=== PATIENT | male | born 1990 | race Caucasian/White ===

== ENCOUNTER 2017-03-11 23:27 | Emergency (ER) | payer OTHER | END 2017-03-12 01:25 | disposition home or self-care (01) | LOC: D.ER 23:27 | DX: S80.12XA Contusion of left lower leg, initial encounter (principal); X58.XXXA Exposure to other specified factors, initial encounter; Y93.89 Activity, other specified; Y92.89 Other specified places as the place of occurrence of the external cause; I10 Essential (primary) hypertension ==

== ENCOUNTER → 2019-03-22 14:01 | Outpatient (CLI) | payer MEDICAID | END | disposition home or self-care (01) | LOC: D.MRI 14:01 | PROVIDERS: ATTEND Orthopaedic Surgery | DX: S83.281A Other tear of lateral meniscus, current injury, right knee, initial encounter (principal); S83.271A Complex tear of lateral meniscus, current injury, right knee, initial encounter; X58.XXXA Exposure to other specified factors, initial encounter ==

== ENCOUNTER 2019-04-16 10:30 | Day surgery (SDC) | payer MEDICAID ==
[2019-04-13 10:13] LABS: HEMATOCRIT 41.1 % (42.0-54.0); HEMOGLOBIN 15.1 g/dL (13.5-17.5); MCH 30.8 pg (26.0-34.0); MCHC 36.7 g/dL (31.0-37.0); MCV 83.9 fL (80.0-100.0); RBC 4.9 10x6/uL (4.20-6.10); RDW 12.2 % (11.5-14.5); WBC 6.5 10x3/uL (4.8-10.8)
[2019-04-13 10:21] LABS: CALC OSMOLALITY 279 mosm/kg (275-300); CALCIUM 9.8 mg/dL (8.5-10.1); CARBON DIOXIDE 28.9 mmol/L (21.0-32.0); CHLORIDE - SERUM 102 mmol/L (98-107); CREATININE - SERUM 0.8 mg/dL (0.6-1.3); GLUCOSE 89 mg/dL (74-106); POTASSIUM - SERUM 4.1 mmol/L (3.5-5.1); SODIUM 139 mmol/L (136-145); UREA NITROGEN 21 mg/dL (7-18); eGFR NON AFRICAN AMERICAN > 90 mL/min (90-120)
[~2019-04-16] VITALS: Ht 172.7 cm; Wt 120.2 kg
[~2019-04-16 10:30] MED LIST: ADIPEX-P37.5 MG PO; ATARAX 25 MG TA25 MG PO; CELEXA20 MG PO; DUEXIS 800-26.1 EACH PO; LISINOPRIL-HCT1 EAC7 PO
[2019-04-16] MEDS ORDERED: FEXOFENADINE HC60 MG PO (12:11)
[2019-04-16 12:25] VITALS: BP 106/64; Ht 172.7 cm; Wt 120.2 kg
[2019-04-16] MEDS ORDERED: HYDROCODON-ACE1 EA10 PO (14:49)
--- NOTE | 2019-04-16 18:36 | NUR ---
175 IV REMOVED 1814 D/C HOME
--- NOTE | 2019-04-19 11:34 | OP ---
PATIENT NAME: JENNY MARISCAL MEDICAL RECORD: [id number] :89 LOCATION:[facility] ADMISSION DATE: SURGEON: ALEN VU MD DATE OF OPERATION: 04/16/2019 PREOPERATIVE DIAGNOSIS: Patellofemoral syndrome of the right knee. POSTOPERATIVE DIAGNOSIS: Patellofemoral syndrome of the right knee. PROCEDURE: Arthroscopic lateral release of the right lateral retinaculum. SURGEON: Alen Vu MD ANESTHESIA: General. INTRAOPERATIVE COMPLICATIONS: None. 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 OPERATIVE SUMMARY IN DETAIL: After obtaining the appropriate preoperative orthopedic surgery consent as well as anesthetic consultation, evaluation, and clearance, the patient was brought to the operating room and placed on the operating table in supine position. After general laryngeal mask airway was administered, tourniquet was placed at the proximal aspect of the right lower extremity. Right lower extremity was then prepped and draped in routine sterile fashion. The leg was elevated and exsanguinated, tourniquet was inflated to 350 mmHg. Routine inferolateral portal was established followed by superomedial portal and inferomedial portal. Diagnostic arthroscopy did show the patient to have the above findings. Medial and lateral compartment relatively was pristine without meniscal tearing. The arthroscopy view was set up from the medial side for direct visualization of the lateral aspect of the knee. Arthrowand hook tip ablation was then utilized to release the lateral retinaculum from the inferolateral aspect of the vastus lateralis to the inferolateral portal. Having completed this, arthroscopy portals were closed in routine interrupted fashion using 4-0 Prolene. Sterile dressings were applied. The patient was awakened, taken to the recovery room in stable condition. All final needle and sponge counts were correct. TRANSINT:[id number] Voice Confirmation ID: [id number] DOCUMENT ID: [id number] HORACE PASTOR, ALEN CRAWFORD at 1134 CC: [id number] DICTATION DATE: 04/18/19 1045 CONSTRUCTION SUPERVISOR: 04/18/19 1234 [facility] 04/16/19 [place] [id number]
== END 2019-04-16 18:15 | disposition home or self-care (01) ==
LOC: D.PAN 10:30 → D.OPS 16:00 → D.PAN 16:00
PROVIDERS: Anesthesiology; ATTEND Orthopaedic Surgery
DX: M22.2X1 Patellofemoral disorders, right knee (principal)

== ENCOUNTER 2020-05-29 08:40 | Day surgery (SDC) | payer OTHER ==
[~2020-05-29] VITALS: Ht 172.7 cm; Wt 122.5 kg
[~2020-05-29 08:40] MED LIST changes: +FEXOFENADINE HC60 MG PO; +HYDROCODON-ACE1 EA10 PO; +PROPRANOLOL HCL20 MG PO
[2020-05-29 08:57] LABS: HEMATOCRIT 44.4 % (42.0-54.0); HEMOGLOBIN 15.2 g/dL (13.5-17.5); MCH 30.5 pg (26.0-34.0); MCHC 34.2 g/dL (31.0-37.0); MEAN PLATELET VOLUME 10.1 fL (7.4-10.4); RBC 4.99 10x6/uL (4.20-6.10); RDW 12.5 % (11.5-14.5)
[2020-05-29 09:08] LABS: CALC OSMOLALITY 270 mosm/kg (275-300); CALCIUM 9.9 mg/dL (8.5-10.1); CARBON DIOXIDE 31.3 mmol/L (21.0-32.0); CHLORIDE - SERUM 101 mmol/L (98-107); CREATININE - SERUM 0.8 mg/dL (0.6-1.3); GLUCOSE 87 mg/dL (74-106); SODIUM 135 mmol/L (136-145); UREA NITROGEN 19 mg/dL (7-18); eGFR NON AFRICAN AMERICAN > 90 mL/min (90-120)
[2020-05-29 09:39] VITALS: BP 112/62; Ht 172.7 cm; Wt 122.5 kg
[2020-05-29] MEDS ORDERED: HYDROCODON-ACE1 EA10 PO (11:44)
--- NOTE | 2020-05-29 14:20 | NUR ---
1348-VSS, DRESSING CDI. POSITIVE REGULAR STRONG PEDAL PULSE. CAP REFILL WNL. PAIN 3/10 TO SURGICAL SITE. NO DISTRESS. DENIES N/V. REMOVED IV WITH CATH INTACT, DISPOSED INTO SHARPS. COVERED WITH GUAZE, SECURED WITH MEDIPORE TAPE. REVIEWED POST OP INSTRUCTIONS AND FOLLOW UP APPOINTMENT WITH PT AND SPOUSE AT BEDSIDE. VERBALIZED UNDERSTANDING.
--- NOTE | 2020-05-29 14:23 | NUR ---
1355-PT DRESSED. ESCORTED OUT VIA W/C WITH SPOUSE AWAITING TO DRIVE HOME.
--- NOTE | 2020-05-31 09:12 | OP ---
PATIENT NAME: JENNY MARISCAL MEDICAL RECORD: [id number] :89 LOCATION:[facility] ADMISSION DATE: SURGEON: ALEN VU MD DATE OF OPERATION: 05/29/2020 PREOPERATIVE DIAGNOSIS: Patellofemoral syndrome, left lower extremity. POSTOPERATIVE DIAGNOSIS: Patellofemoral syndrome, left lower extremity. PROCEDURE: Arthroscopic lateral release, left lower extremity. SURGEON: Alen Vu MD ANESTHESIA: General. INTRAOPERATIVE COMPLICATIONS: None. SUMMARY OF PATHOLOGIC FINDINGS: The patient did indeed have patellofemoral joint disease consistent with his preoperative diagnosis MRI and physical examination. He had previously had a right lateral release with substantial relief of symptoms. OPERATIVE SUMMARY IN DETAIL: After obtaining the appropriate preoperative orthopedic surgery consent as well as anesthetic consultation, evaluation and clearance, the patient was brought to the operating room and placed on the operating table in supine position. After adequate general laryngeal mask airway was administered, tourniquet was placed about the proximal aspect of the left lower extremity. Left lower extremity was then prepped and draped in routine sterile fashion. Leg was elevated, exsanguinated, and tourniquet was inflated to 350 mmHg. At this point, the appropriate timeout was taken, given the patient's unique identifiers. This was agreed upon by all in the operative suite. Inferolateral portal was established followed by superomedial and inferomedial portal. Diagnostic arthroscopy showed the patient to have absolutely pristine knee with the exception of a patellar compression syndrome. Arthroscopy was established into the medial portal for direct visualization of the lateral retinaculum. A surface hook tip ablation system was utilized to release the lateral retinaculum from the inferior aspect of the vastus lateralis to the inferolateral portal. Having completed this, the knee was insufflated with 0.25% Marcaine with epinephrine 30 mL. Arthroscopy portals were closed in routine interrupted fashion using 4-0 Prolene. Sterile dressing was applied. Tourniquet was deflated. The patient was awakened and taken to recovery room in stable condition. All final needle and sponge counts were correct. TRANSINT:[id number] Voice Confirmation ID: [id number] DOCUMENT ID: [id number] OPERATIVE REPORT [id number] MARISCALJENNY MD, ALEN CRAWFORD at 0412 CC: [id number] DICTATION DATE: 05/30/20 1145 CONCRETE BLOCK MAKER: 05/30/20 2224 [facility] 05/29/20 [place] [id number] [place] [id number]
== END 2020-05-29 13:55 | disposition home or self-care (01) ==
LOC: D.OPS 08:40 → D.PAN 11:00 → D.OPS 12:00 → D.PAN 12:00 → D.OPS 13:55 → D.PAN 15:10
PROVIDERS: Anesthesiology; ATTEND Orthopaedic Surgery
DX: M25.862 Other specified joint disorders, left knee (principal); M25.562 Pain in left knee; M22.2X2 Patellofemoral disorders, left knee